=== PATIENT | female | born 1985 | race Two or more races ===

== ENCOUNTER 2019-05-21 11:14 | Emergency (ER) | payer MEDICAID ==
[~2019-05-21] VITALS: Ht 160 cm; Wt 72.0 kg
[2019-05-21 11:38] VITALS: BP 124/54
== END 2019-05-21 14:58 | disposition left against medical advice (07) ==
LOC: ER 11:14
DX: R10.9 Unspecified abdominal pain (principal); Z53.21 Procedure and treatment not carried out due to patient leaving prior to being seen by health care provider